=== PATIENT | male | born 1935 | race Caucasian/White ===

== ENCOUNTER 2020-07-21 10:20 | Emergency (ER) | payer MEDICAID, OTHER ==
[~2020-07-21] VITALS: Ht 170.2 cm; Wt 73.0 kg
[~2020-07-21 10:20] MED LIST: LEVAQUIN PO; METR250T PO
[2020-07-21 11:17] LABS: BASOPHILS % 1.3 % (0.0-2.0); HEMATOCRIT. 38.3 % (42.0-52.0); HEMOGLOBIN. 13.5 g/dL (14.0-18.0); LYMPHOCYTES % 36.7 % (20.0-50.0); MEAN CORPUSCULAR HEMOGLOBIN 31.2 pg (28.0-32.0); MEAN CORPUSCULAR VOLUME 88.5 fL (80.0-94.0); MEAN PLATELET VOLUME 7.4 fl (7.4-10.4); MONOCYTES % 8.1 % (2.0-8.0); NEUTROPHILS % 52.9 % (40.0-76.0); PLATELET 178 x1000/uL (130-400); RED BLOOD CELL COUNT 4.32 mill/uL (4.7-6.1); RED CELL DISTRIBUTION WIDTH 12.7 % (11.6-14.6)
[2020-07-21 11:22] LABS: CHLORIDE 96 mEq/L (98-107)
[2020-07-21 11:39] LABS: CLARITY URINE CLEAR (CLEAR); COLOR URINE YELLOW (YELLOW); KETONES URINE NEGATIVE (NEGATIVE); LEUKOCYTE ESTERASE URINE NEGATIVE (NEGATIVE); NITRITE URINE NEGATIVE (NEGATIVE); OCCULT BLOOD URINE 1+ (NEGATIVE); PH URINE 6.5 (4.5-8.0); PROTEIN URINE 4+ (NEGATIVE); SPECIFIC GRAVITY URINE 1.013 (1.005-1.030); UROBILINOGEN URINE 0.2 E.U./dL (0.2-1.0)
[2020-07-21] MEDS ORDERED: SODIUM CHLORIDE 0.9% 1,000 ML IV ONE (12:00)
[2020-07-21 13:05] LABS: PROTHROMBIN TIME 10.5 sec (9.6-11.0)
[2020-07-21] MEDS ORDERED: IOHEXOL-300 100 ML BOTTLE ONE (15:03)
[2020-07-21] MEDS ORDERED: LABETALOL 5MG/ML SYR 20 MG/4 ML SYRINGE IV ONE (16:00)
[2020-07-21 16:27] VITALS: BP 168/78
== END 2020-07-21 17:03 | disposition short-term general hospital (02) ==
LOC: ER 10:20
DX: R07.89 Other chest pain (principal); E11.9 Type 2 diabetes mellitus without complications; I10 Essential (primary) hypertension; E78.00 Pure hypercholesterolemia, unspecified; R10.9 Unspecified abdominal pain; Z88.0 Allergy status to penicillin; Z90.49 Acquired absence of other specified parts of digestive tract
CPT/HCPCS: 36415; 71045; 74177; 80053; 81003; 83605; 83690; 84484; 85025; 85610; 93005; 96360; 96361; 99285; J3490; J7030; Q9967

== ENCOUNTER 2021-06-21 13:39 | Inpatient (IN) | payer OTHER ==
[~2021-06-21] VITALS: Ht 152.4 cm; Wt 73.5 kg
[2021-06-21] MEDS ORDERED: MECLIZINE 25MG TABLET PO ONE (15:15)
[2021-06-21 15:16] LABS: BASOPHILS % 1.1 % (0.0-2.0); EOSINOPHILS % 1.3 % (0.0-5.0); HEMOGLOBIN. 14.7 g/dL (14.0-18.0); LYMPHOCYTES % 52.4 % (20.0-50.0); MEAN CORPUSCULAR HEMOGLOBIN 30.7 pg (28.0-32.0); MEAN PLATELET VOLUME 6.9 fl (7.4-10.4); NEUTROPHILS % 39.2 % (40.0-76.0); PLATELET 181 x1000/uL (130-400); RED BLOOD CELL COUNT 4.78 mill/uL (4.7-6.1); RED CELL DISTRIBUTION WIDTH 14.1 % (11.6-14.6)
[2021-06-21 15:18] LABS: CHLORIDE 107 mEq/L (98-107)
[2021-06-21] MEDS ORDERED: MECL-159 MT ×2 (15:24)
[2021-06-21 16:06] LABS: CLARITY URINE CLEAR (CLEAR); COLOR URINE YELLOW (YELLOW); KETONES URINE NEGATIVE (NEGATIVE); LEUKOCYTE ESTERASE URINE NEGATIVE (NEGATIVE); NITRITE URINE NEGATIVE (NEGATIVE); OCCULT BLOOD URINE NEGATIVE (NEGATIVE); PROTEIN URINE TRACE (NEGATIVE); SPECIFIC GRAVITY URINE 1.006 (1.005-1.030); UROBILINOGEN URINE 0.2 E.U./dL (0.2-1.0)
[2021-06-21] MEDS ORDERED: SODIUM CHLORIDE 0.9% 250 ML IV ONE (16:15)
[2021-06-21] MEDS ORDERED: LEVETIRACETAM 1000MG PREMIX 100 ML IV ONE (17:45)
[2021-06-21 23:00] VITALS: BP 146/54
[2021-06-22] VITALS (11 sets, daily range): BP systolic 98–140; BP diastolic 41–65
[2021-06-22] MEDS ORDERED: MECLIZINE 25MG TABLET PO PRN (01:30)
[2021-06-22] MEDS ORDERED: FAMO40TA7 MT (17:33)
[2021-06-22] MEDS ORDERED: GLIM2TAB30 MT (17:33)
[2021-06-22] MEDS ORDERED: NIFE-32 MT (17:33)
[2021-06-22] MEDS ORDERED: METO-539 PO (17:33)
[2021-06-23] VITALS (8 sets, daily range): BP systolic 106–156; BP diastolic 50–112
== END 2021-06-23 15:15 | disposition home or self-care (01) | DRG 44 ==
LOC: ER 13:39 → EDBEDREQTM 20:04 → EDBEDREQSVC 20:04 → EDBEDREQ 20:04 → ENRESERV 21:23 → ER 06-22 00:03 → 5EST 06-22 00:19
PROVIDERS: ADMIT Internal Medicine; ATTEND Internal Medicine
DX: I61.9 Nontraumatic intracerebral hemorrhage, unspecified (principal); E44.1 Mild protein-calorie malnutrition; E11.9 Type 2 diabetes mellitus without complications; E66.9 Obesity, unspecified; E78.00 Pure hypercholesterolemia, unspecified; Z20.822 Contact with and (suspected) exposure to COVID-19; E78.5 Hyperlipidemia, unspecified; I10 Essential (primary) hypertension; Z82.49 Family history of ischemic heart disease and other diseases of the circulatory system; Z88.0 Allergy status to penicillin; Z79.899 Other long term (current) drug therapy; Z90.49 Acquired absence of other specified parts of digestive tract; Z68.31 Body mass index [BMI] 31.0-31.9, adult
CPT/HCPCS: 36415; 70551; 71045; 80053; 81003; 84484; 85025; 87426; 93005; 97163; 99291; J1953; J7050; J8597

== ENCOUNTER 2022-02-25 10:14 | Emergency (ER) | payer OTHER ==
[~2022-02-25] VITALS: Ht 167.6 cm; Wt 77.0 kg
[~2022-02-25 10:14] MED LIST changes: +FAMO40TA7 MT; +GLIM2TAB30 MT; -LEVAQUIN PO; +METO-539 PO; -METR250T PO; +NIFE-32 MT
[2022-02-25 11:14] LABS: HEMATOCRIT. 41.3 % (42.0-52.0); HEMOGLOBIN. 13.9 g/dL (14.0-18.0); MEAN CORPUSCULAR HEMOGLOBIN 29.6 pg (28.0-32.0); MEAN CORPUSCULAR VOLUME 87.7 fL (80.0-94.0); PLATELET 176 x1000/uL (130-400); RED BLOOD CELL COUNT 4.71 mill/uL (4.7-6.1); RED CELL DISTRIBUTION WIDTH 13.7 % (11.6-14.6)
[2022-02-25 11:24] LABS: CHLORIDE 106 mEq/L (98-107)
[2022-02-25 12:01] LABS: PLATELET ESTIMATE NORMAL
[2022-02-25] MEDS ORDERED: ACETAMINOPHEN 325MG TABLET PO NR (13:00)
[2022-02-25] MEDS ORDERED: VISCOUS LIDOCAINE 2% 15 ML UDC MM ONE (15:15)
[2022-02-25] MEDS ORDERED: MAGNESIUM/ALUMINUM HYDROXIDE/SIMETHICONE 30ML UDC PO ONE (15:15)
[2022-02-25 19:02] VITALS: BP 208/72
[2022-02-25] MEDS ORDERED: AMLODIPINE 10MG TABLET PO STA (19:04)
== END 2022-02-25 21:48 | disposition home or self-care (01) ==
LOC: ER 10:26
DX: I10 Essential (primary) hypertension (principal); R51.9 Headache, unspecified; E78.00 Pure hypercholesterolemia, unspecified; E11.9 Type 2 diabetes mellitus without complications; Z90.49 Acquired absence of other specified parts of digestive tract; Z88.0 Allergy status to penicillin
CPT/HCPCS: 36415; 71045; 80053; 83880; 84484; 85025; 93005; 99285

== ENCOUNTER 2022-08-11 15:21 | Emergency (ER) | payer OTHER ==
[~2022-08-11] VITALS: Ht 170.2 cm; Wt 78.0 kg
[2022-08-11 15:34] VITALS: BP 190/68
[2022-08-11 22:20] LABS: HEMATOCRIT. 39.3 % (42.0-52.0); HEMOGLOBIN. 13.4 g/dL (14.0-18.0); MEAN CORPUSCULAR VOLUME 88.3 fL (80.0-94.0); MEAN PLATELET VOLUME 6.7 fl (7.4-10.4); PLATELET 178 x1000/uL (130-400); RED BLOOD CELL COUNT 4.46 mill/uL (4.7-6.1); RED CELL DISTRIBUTION WIDTH 13.7 % (11.6-14.6)
[2022-08-11 22:36] LABS: PLATELET ESTIMATE NORMAL
[2022-08-11 22:43] LABS: CHLORIDE 103 mEq/L (98-107)
== END 2022-08-11 23:58 | disposition left against medical advice (07) ==
LOC: ER 15:21
DX: Z53.21 Procedure and treatment not carried out due to patient leaving prior to being seen by health care provider (principal)
CPT/HCPCS: 36415; 80053; 83880; 84484; 85025

== ENCOUNTER 2022-09-16 20:41 | Inpatient (IN) | payer OTHER ==
[~2022-09-16] VITALS: Ht 177.8 cm; Wt 64.0 kg
[2022-09-16] MEDS ORDERED: LABETALOL HCL VIAL 20 MG/4 ML VIAL IV ONE ×2 (21:30→22:00)
[2022-09-16 21:34] LABS: INR 1.1; PROTHROMBIN TIME 11.7 sec (9.6-11.0)
[2022-09-16 21:37] LABS: CHLORIDE 102 mEq/L (98-107)
[2022-09-16] MEDS ORDERED: LABETALOL 5MG/ML SYR 20 MG/4 ML SYRINGE IV NR ×2 (21:41→22:05)
[2022-09-16 21:46] LABS: HEMATOCRIT. 42.4 % (42.0-52.0); HEMOGLOBIN. 14.1 g/dL (14.0-18.0); MEAN CORPUSCULAR HEMOGLOBIN 29.7 pg (28.0-32.0); MEAN CORPUSCULAR VOLUME 89.2 fL (80.0-94.0); MEAN PLATELET VOLUME 7.6 fl (7.4-10.4); PLATELET 481 x1000/uL (130-400); RED BLOOD CELL COUNT 4.76 mill/uL (4.7-6.1); RED CELL DISTRIBUTION WIDTH 14.1 % (11.6-14.6)
[2022-09-16] MEDS ORDERED: VANCOMYCIN 1G PREMIX 200 ML IV SCH (22:00)
[2022-09-16] MEDS ORDERED: PIPERACILLIN/TAZOBACTAM 3.375GM/50ML PREMIX IV NR (22:00)
[2022-09-16] MEDS ORDERED: PIPERACILLIN/TAZ 3.375G PREMIX 50 ML IV NR (22:11)
[2022-09-16 22:22] LABS: CLARITY URINE CLEAR (CLEAR); COLOR URINE YELLOW (YELLOW); KETONES URINE NEGATIVE (NEGATIVE); LEUKOCYTE ESTERASE URINE NEGATIVE (NEGATIVE); NITRITE URINE NEGATIVE (NEGATIVE); OCCULT BLOOD URINE 2+ (NEGATIVE); PH URINE 5.5 (4.5-8.0); PROTEIN URINE 3+ (NEGATIVE); SPECIFIC GRAVITY URINE 1.037 (1.005-1.030)
[2022-09-16 22:33] LABS: PLATELET ESTIMATE INCREASED
[2022-09-17] MEDS: CLONIDINE 0.1MG TABLET PO PRN ×2 (02:25→18:34)
[2022-09-17] MEDS ORDERED: ONDANSETRON HCL 4MG/2ML INJ IV PRN (12:00)
[2022-09-17] MEDS ORDERED: DEXTROSE 50% WATER 50ML SYRINGE IV PRN (12:00)
[2022-09-17] MEDS ORDERED: ACETAMINOPHEN 325MG TABLET PO PRN (12:00)
[2022-09-17] MEDS ORDERED: IPRATROPIUM BROMIDE (0.02%) 0.5MG/2.5ML NEB HHN SCH (12:00)
[2022-09-17 12:28] LABS: BG BASE EXCESS 2.9 mmol/L (-2.0-2.0); BG CARBOXYHEMOGLOBIN 0.9 % (0.5-1.5); BG DEOXYHEMOGLOBIN 7.6 % (0.0-5.0); BG METHEMOGLOBIN 0.2 % (0.0-1.5); BG OXYGEN SATURATION 92.3 % (92.0-98.5); BG OXYHEMOGLOBIN 91.3 % (94.0-97.0); BG PCO2 39.5 mmHg (35.0-45.0); BG PH 7.452 (7.350-7.450); BG PO2 63.9 mmHg (75.0-100.0); BG SAMPLE SITE RIGHT BRACHIAL; BG TOTAL HEMOGLOBIN 14.3 g/dL (12.0-18.0); BG VENT MODE NASAL CANNULA
[2022-09-17] MEDS: BLOOD SUGAR DIAGNOSTIC STRIP TEST SCH ×3 (13:32→20:07)
[2022-09-17] MEDS: INSULIN LISPRO 100 UNITS/ML SUBCUT SCH ×3 (13:33→20:07)
[2022-09-17] MEDS ORDERED: PIPERACILLIN/TAZ 3.375G PREMIX 50 ML IV SCH (14:00)
[2022-09-17] MEDS ORDERED: IPRATROPIUM/ALBUTEROL 0.5-3(2.5)MG/3ML NEB HHN PRN (14:00)
[2022-09-17] MEDS: GUAIFENESIN 600MG ER TABLET PO SCH (14:48)
[2022-09-17] MEDS: IPRATROPIUM/ALBUTEROL 0.5-3(2.5)MG/3ML NEB HHN SCH ×2 (16:32→21:29)
[2022-09-17] MEDS: GUAIFENESIN-DM 200MG-20MG/10ML UDC PO PRN (18:33)
[2022-09-17 20:00] VITALS: BP 144/62
[2022-09-17] MEDS: PIPERACILLIN/TAZOBACTAM 3.375G in DEXT 5% WATER 50ML IV SCH (21:54)
[2022-09-18] VITALS (8 sets, daily range): BP systolic 146–175; BP diastolic 64–85
[2022-09-18] MEDS: IPRATROPIUM/ALBUTEROL 0.5-3(2.5)MG/3ML NEB HHN SCH ×4 (01:40→11:08)
[2022-09-18] MEDS: PIPERACILLIN/TAZOBACTAM 3.375G in DEXT 5% WATER 50ML IV SCH ×3 (06:02→20:52)
[2022-09-18] MEDS: INSULIN LISPRO 100 UNITS/ML SUBCUT SCH ×4 (06:03→20:51)
[2022-09-18] MEDS: BLOOD SUGAR DIAGNOSTIC STRIP TEST SCH ×4 (06:33→20:51)
[2022-09-18 08:02] LABS: BASOPHILS % 0.1 % (0.0-2.0); EOSINOPHILS % 0.2 % (0.0-5.0); HEMATOCRIT. 33.7 % (42.0-52.0); HEMOGLOBIN. 11.2 g/dL (14.0-18.0); LYMPHOCYTES % 51.2 % (20.0-50.0); MEAN CORPUSCULAR HEMOGLOBIN 29.6 pg (28.0-32.0); MEAN CORPUSCULAR VOLUME 89.3 fL (80.0-94.0); MEAN PLATELET VOLUME 7.4 fl (7.4-10.4); MONOCYTES % 4.8 % (2.0-8.0); NEUTROPHILS % 43.7 % (40.0-76.0); PLATELET 352 x1000/uL (130-400); RED BLOOD CELL COUNT 3.77 mill/uL (4.7-6.1); RED CELL DISTRIBUTION WIDTH 14.3 % (11.6-14.6)
[2022-09-18 08:06] LABS: CHLORIDE 108 mEq/L (98-107)
[2022-09-18] MEDS: GUAIFENESIN 600MG ER TABLET PO SCH ×2 (08:40→16:35)
[2022-09-18] MEDS: CLONIDINE 0.1MG TABLET PO PRN (12:39)
[2022-09-18] MEDS: DEXAMETHASONE 4MG/ML 1ML VIAL IV SCH (14:39)
[2022-09-18] MEDS: ALBUTEROL 6.7GM HFA INHALER ORI SCH ×2 (14:59→21:00)
[2022-09-18] MEDS: AMLODIPINE 5MG TABLET PO SCH (17:00)
[2022-09-19] VITALS: BP 133/57
[2022-09-19] MEDS: ALBUTEROL 6.7GM HFA INHALER ORI SCH ×4 (03:19→21:25)
[2022-09-19 04:00] VITALS: BP 141/63
[2022-09-19 06:08] LABS: HEMATOCRIT. 32.9 % (42.0-52.0); HEMOGLOBIN. 11.1 g/dL (14.0-18.0); MEAN CORPUSCULAR HEMOGLOBIN 29.9 pg (28.0-32.0); MEAN CORPUSCULAR VOLUME 88.4 fL (80.0-94.0); MEAN PLATELET VOLUME 7.8 fl (7.4-10.4); MONOCYTES % 3.5 % (2.0-8.0); NEUTROPHILS % 51.5 % (40.0-76.0); PLATELET 329 x1000/uL (130-400); RED BLOOD CELL COUNT 3.72 mill/uL (4.7-6.1)
[2022-09-19] MEDS: BLOOD SUGAR DIAGNOSTIC STRIP TEST SCH ×4 (06:08→21:09)
[2022-09-19] MEDS: INSULIN LISPRO 100 UNITS/ML SUBCUT SCH ×4 (06:08→21:24)
[2022-09-19] MEDS: PIPERACILLIN/TAZOBACTAM 3.375G in DEXT 5% WATER 50ML IV SCH ×3 (06:09→21:25)
[2022-09-19 07:27] LABS: CHLORIDE 103 mEq/L (98-107)
[2022-09-19 08:00] VITALS: BP 140/98
[2022-09-19] MEDS: AMLODIPINE 5MG TABLET PO SCH (09:09)
[2022-09-19] MEDS: GUAIFENESIN 600MG ER TABLET PO SCH ×2 (09:09→16:41)
[2022-09-19] MEDS: DEXAMETHASONE 4MG/ML 1ML VIAL IV SCH (09:30)
[2022-09-19] MEDS: GUAIFENESIN-DM 200MG-20MG/10ML UDC PO PRN ×2 (11:38→16:41)
[2022-09-19 12:10] VITALS: BP 116/74
[2022-09-19] MEDS ORDERED: FUROSEMIDE 20MG/2ML VIAL IVP NR (14:00)
[2022-09-19 16:00] VITALS: BP 148/78
[2022-09-19 20:00] VITALS: BP 152/81
[2022-09-19] MEDS: INSULIN GLARGINE 100 UNITS/ML SUBCUT SCH (21:23)
[2022-09-20] VITALS: BP 157/61
[2022-09-20] MEDS: ALBUTEROL 6.7GM HFA INHALER ORI SCH ×4 (03:39→21:42)
[2022-09-20] MEDS: GUAIFENESIN-DM 200MG-20MG/10ML UDC PO PRN ×2 (03:44→22:10)
[2022-09-20 04:00] VITALS: BP 148/68
[2022-09-20] MEDS: BLOOD SUGAR DIAGNOSTIC STRIP TEST SCH ×4 (06:22→20:48)
[2022-09-20] MEDS: INSULIN LISPRO 100 UNITS/ML SUBCUT SCH ×4 (06:31→20:48)
[2022-09-20] MEDS: PIPERACILLIN/TAZOBACTAM 3.375G in DEXT 5% WATER 50ML IV SCH ×3 (06:32→22:10)
[2022-09-20 08:00] VITALS: BP 139/61
[2022-09-20] MEDS: DEXAMETHASONE 4MG/ML 1ML VIAL IV SCH (10:09)
[2022-09-20] MEDS: GUAIFENESIN 600MG ER TABLET PO SCH ×2 (10:10→18:49)
[2022-09-20] MEDS: AMLODIPINE 5MG TABLET PO SCH (10:10)
[2022-09-20] MEDS: INSULIN GLARGINE 100 UNITS/ML SUBCUT SCH ×2 (10:24→22:12)
[2022-09-20 12:00] VITALS: BP 137/71
[2022-09-20 16:00] VITALS: BP 147/61
[2022-09-20 20:00] VITALS: BP 133/88
[2022-09-21] VITALS: BP 163/74
[2022-09-21] MEDS: CLONIDINE 0.1MG TABLET PO PRN (02:48)
[2022-09-21] MEDS: ALBUTEROL 6.7GM HFA INHALER ORI SCH ×4 (02:48→20:24)
[2022-09-21 04:00] VITALS: BP 155/67
[2022-09-21] MEDS: BLOOD SUGAR DIAGNOSTIC STRIP TEST SCH ×4 (05:36→20:24)
[2022-09-21] MEDS: PIPERACILLIN/TAZOBACTAM 3.375G in DEXT 5% WATER 50ML IV SCH ×3 (05:36→21:38)
[2022-09-21] MEDS: GUAIFENESIN-DM 200MG-20MG/10ML UDC PO PRN ×4 (06:32→20:24)
[2022-09-21] MEDS: INSULIN LISPRO 100 UNITS/ML SUBCUT SCH ×4 (07:10→21:30)
[2022-09-21 07:43] LABS: HEMATOCRIT. 36.1 % (42.0-52.0); MEAN CORPUSCULAR HEMOGLOBIN 29.6 pg (28.0-32.0); MEAN PLATELET VOLUME 7.5 fl (7.4-10.4); PLATELET 394 x1000/uL (130-400); RED BLOOD CELL COUNT 4.06 mill/uL (4.7-6.1); RED CELL DISTRIBUTION WIDTH 13.6 % (11.6-14.6)
[2022-09-21 08:00] VITALS: BP 144/53
[2022-09-21 08:06] LABS: CHLORIDE 105 mEq/L (98-107)
[2022-09-21] MEDS: GUAIFENESIN 600MG ER TABLET PO SCH ×2 (09:49→16:21)
[2022-09-21] MEDS: DEXAMETHASONE 4MG/ML 1ML VIAL IV SCH (09:50)
[2022-09-21] MEDS: AMLODIPINE 5MG TABLET PO SCH (09:50)
[2022-09-21] MEDS: INSULIN GLARGINE 100 UNITS/ML SUBCUT SCH ×2 (11:39→21:30)
[2022-09-21 12:00] VITALS: BP 127/49
[2022-09-21 16:00] VITALS: BP 124/54
[2022-09-21 18:17] LABS: PLATELET ESTIMATE NORMAL
[2022-09-21 20:00] VITALS: BP 137/59
[2022-09-22] VITALS: BP 144/56
[2022-09-22 04:00] VITALS: BP 152/86
[2022-09-22] MEDS: ALBUTEROL 6.7GM HFA INHALER ORI SCH ×4 (04:59→21:28)
[2022-09-22] MEDS: GUAIFENESIN-DM 200MG-20MG/10ML UDC PO PRN ×2 (04:59→23:44)
[2022-09-22] MEDS: PIPERACILLIN/TAZOBACTAM 3.375G in DEXT 5% WATER 50ML IV SCH ×3 (05:03→21:20)
[2022-09-22] MEDS: BLOOD SUGAR DIAGNOSTIC STRIP TEST SCH ×4 (05:52→21:27)
[2022-09-22] MEDS: INSULIN LISPRO 100 UNITS/ML SUBCUT SCH ×4 (07:10→21:20)
[2022-09-22 08:00] VITALS: BP 142/56
[2022-09-22] MEDS: DEXAMETHASONE 4MG/ML 1ML VIAL IV SCH (09:32)
[2022-09-22] MEDS: GUAIFENESIN 600MG ER TABLET PO SCH ×2 (09:32→17:10)
[2022-09-22] MEDS: AMLODIPINE 5MG TABLET PO SCH (09:33)
[2022-09-22] MEDS: INSULIN GLARGINE 100 UNITS/ML SUBCUT SCH ×2 (09:41→21:21)
[2022-09-22 12:00] VITALS: BP 144/62
[2022-09-22 16:00] VITALS: BP 143/54
[2022-09-22 16:35] LABS: BG BASE EXCESS -1.1 mmol/L (-2.0-2.0); BG DEOXYHEMOGLOBIN 3.8 % (0.0-5.0); BG FRACTION INSPIRED OXYGEN 38; BG HCO3 ACT 22.5 mmol/L (22.0-26.0); BG METHEMOGLOBIN 0.1 % (0.0-1.5); BG OXYGEN SATURATION 96.2 % (92.0-98.5); BG OXYHEMOGLOBIN 96.1 % (94.0-97.0); BG PCO2 34.4 mmHg (35.0-45.0); BG PH 7.434 (7.350-7.450); BG PO2 83.5 mmHg (75.0-100.0); BG SAMPLE SITE RIGHT RADIAL; BG TOTAL HEMOGLOBIN 13.1 g/dL (12.0-18.0); BG VENT MODE NASAL CANNULA
[2022-09-22 20:00] VITALS: BP 139/88
[2022-09-23] VITALS: BP 143/65
[2022-09-23 04:00] VITALS: BP 153/51
[2022-09-23] MEDS: ALBUTEROL 6.7GM HFA INHALER ORI SCH ×4 (04:45→21:08)
[2022-09-23] MEDS: INSULIN LISPRO 100 UNITS/ML SUBCUT SCH ×4 (05:40→21:03)
[2022-09-23] MEDS: BLOOD SUGAR DIAGNOSTIC STRIP TEST SCH ×4 (05:40→20:54)
[2022-09-23 06:08] LABS: CHLORIDE 103 mEq/L (98-107)
[2022-09-23 06:16] LABS: HEMATOCRIT. 37.1 % (42.0-52.0); HEMOGLOBIN. 12.5 g/dL (14.0-18.0); MEAN CORPUSCULAR HEMOGLOBIN 29.9 pg (28.0-32.0); MEAN PLATELET VOLUME 7.6 fl (7.4-10.4); PLATELET 410 x1000/uL (130-400); RED BLOOD CELL COUNT 4.17 mill/uL (4.7-6.1); RED CELL DISTRIBUTION WIDTH 13.6 % (11.6-14.6)
[2022-09-23 08:00] VITALS: BP 153/61
[2022-09-23] MEDS: GUAIFENESIN 600MG ER TABLET PO SCH ×2 (09:13→17:09)
[2022-09-23] MEDS: DEXAMETHASONE 4MG/ML 1ML VIAL IV SCH (09:13)
[2022-09-23] MEDS: GUAIFENESIN-DM 200MG-20MG/10ML UDC PO PRN ×2 (09:14→14:23)
[2022-09-23] MEDS: AMLODIPINE 5MG TABLET PO SCH (09:14)
[2022-09-23] MEDS: INSULIN GLARGINE 100 UNITS/ML SUBCUT SCH ×2 (10:00→21:03)
[2022-09-23 11:53] LABS: BG BASE EXCESS 3.3 mmol/L (-2.0-2.0); BG CARBOXYHEMOGLOBIN 0.5 % (0.5-1.5); BG DEOXYHEMOGLOBIN 12.5 % (0.0-5.0); BG FRACTION INSPIRED OXYGEN 21; BG HCO3 ACT 26.4 mmol/L (22.0-26.0); BG METHEMOGLOBIN 0.2 % (0.0-1.5); BG OXYGEN SATURATION 87.4 % (92.0-98.5); BG OXYHEMOGLOBIN 86.8 % (94.0-97.0); BG PCO2 35.5 mmHg (35.0-45.0); BG PO2 53.3 mmHg (75.0-100.0); BG SAMPLE SITE RIGHT BRACHIAL; BG TOTAL HEMOGLOBIN 14.1 g/dL (12.0-18.0); BG VENT MODE ROOM AIR
[2022-09-23 12:00] VITALS: BP 143/53
[2022-09-23 16:00] VITALS: BP_SYST 131
[2022-09-23 20:00] VITALS: BP 141/54
[2022-09-24] VITALS: BP 136/55
[2022-09-24] MEDS: GUAIFENESIN-DM 200MG-20MG/10ML UDC PO PRN ×3 (00:14→15:15)
[2022-09-24] MEDS: ALBUTEROL 6.7GM HFA INHALER ORI SCH ×4 (03:04→21:30)
[2022-09-24 04:00] VITALS: BP 137/61
[2022-09-24] MEDS: BLOOD SUGAR DIAGNOSTIC STRIP TEST SCH ×4 (05:58→21:31)
[2022-09-24] MEDS: INSULIN LISPRO 100 UNITS/ML SUBCUT SCH ×4 (05:58→21:31)
[2022-09-24 08:00] VITALS: BP 137/60
[2022-09-24] MEDS: DEXAMETHASONE 4MG/ML 1ML VIAL IV SCH (09:43)
[2022-09-24] MEDS: AMLODIPINE 5MG TABLET PO SCH (09:43)
[2022-09-24] MEDS: GUAIFENESIN 600MG ER TABLET PO SCH ×2 (09:43→17:17)
[2022-09-24] MEDS: INSULIN GLARGINE 100 UNITS/ML SUBCUT SCH ×2 (10:00→12:57)
[2022-09-24 12:00] VITALS: BP 137/58
[2022-09-24 14:39] LABS: PLATELET ESTIMATE SLIGHTLY INCREASED
[2022-09-24 16:00] VITALS: BP 125/41
[2022-09-24 18:23] LABS: BASOPHILS % 0.1 % (0.0-2.0); HEMOGLOBIN. 13.6 g/dL (14.0-18.0); LYMPHOCYTES % 48.5 % (20.0-50.0); MEAN CORPUSCULAR VOLUME 90.7 fL (80.0-94.0); MEAN PLATELET VOLUME 7.3 fl (7.4-10.4); MONOCYTES % 3.8 % (2.0-8.0); NEUTROPHILS % 47.6 % (40.0-76.0); PLATELET 361 x1000/uL (130-400); RED BLOOD CELL COUNT 4.53 mill/uL (4.7-6.1); RED CELL DISTRIBUTION WIDTH 14.3 % (11.6-14.6)
[2022-09-24 18:31] LABS: CHLORIDE 99 mEq/L (98-107)
[2022-09-24 20:00] VITALS: BP 134/51
[2022-09-24] MEDS: FAMOTIDINE 20MG TABLET PO SCH (21:30)
[2022-09-25] VITALS: BP 164/62
[2022-09-25] MEDS: CLONIDINE 0.1MG TABLET PO PRN (01:11)
[2022-09-25] MEDS: ALBUTEROL 6.7GM HFA INHALER ORI SCH ×4 (03:27→21:07)
[2022-09-25 04:00] VITALS: BP 93/52
[2022-09-25] MEDS: BLOOD SUGAR DIAGNOSTIC STRIP TEST SCH ×4 (06:16→20:55)
[2022-09-25] MEDS: INSULIN LISPRO 100 UNITS/ML SUBCUT SCH ×4 (06:35→21:08)
[2022-09-25 08:00] VITALS: BP 166/62
[2022-09-25] MEDS: GUAIFENESIN 600MG ER TABLET PO SCH ×2 (09:41→18:09)
[2022-09-25] MEDS: AMLODIPINE 5MG TABLET PO SCH (09:41)
[2022-09-25] MEDS: FAMOTIDINE 20MG TABLET PO SCH ×2 (09:42→21:06)
[2022-09-25] MEDS: DEXAMETHASONE 10 MG/ML VIAL IV SCH (09:42)
[2022-09-25] MEDS: INSULIN GLARGINE 100 UNITS/ML SUBCUT SCH ×2 (09:43→21:08)
[2022-09-25 12:00] VITALS: BP 117/54
[2022-09-25 16:00] VITALS: BP 140/60
[2022-09-25 20:00] VITALS: BP 133/64
[2022-09-26] VITALS: BP 136/60
[2022-09-26] MEDS: ALBUTEROL 6.7GM HFA INHALER ORI SCH (03:09)
[2022-09-26 04:00] VITALS: BP 161/74
[2022-09-26] MEDS: INSULIN LISPRO 100 UNITS/ML SUBCUT SCH ×4 (06:12→23:00)
[2022-09-26] MEDS: BLOOD SUGAR DIAGNOSTIC STRIP TEST SCH ×4 (06:17→21:00)
[2022-09-26 08:00] VITALS: BP 164/67
[2022-09-26] MEDS: DEXAMETHASONE 10 MG/ML VIAL IV SCH (09:00)
[2022-09-26] MEDS: GUAIFENESIN 600MG ER TABLET PO SCH ×2 (09:18→17:30)
[2022-09-26] MEDS: FAMOTIDINE 20MG TABLET PO SCH ×2 (09:19→23:00)
[2022-09-26] MEDS: AMLODIPINE 5MG TABLET PO SCH (09:19)
[2022-09-26] MEDS: INSULIN GLARGINE 100 UNITS/ML SUBCUT SCH ×2 (09:30→22:59)
[2022-09-26 11:59] VITALS: BP 121/56
[2022-09-26 15:46] VITALS: BP 105/47
[2022-09-26 20:00] VITALS: BP 148/59
[2022-09-27] VITALS: BP 149/61
[2022-09-27] MEDS: ALBUTEROL 6.7GM HFA INHALER ORI SCH ×3 (03:35→15:43)
[2022-09-27 04:00] VITALS: BP 143/55
[2022-09-27] MEDS: INSULIN LISPRO 100 UNITS/ML SUBCUT SCH ×4 (05:56→22:05)
[2022-09-27] MEDS: BLOOD SUGAR DIAGNOSTIC STRIP TEST SCH ×4 (05:56→21:57)
[2022-09-27 08:00] VITALS: BP 134/65
[2022-09-27] MEDS: GUAIFENESIN 600MG ER TABLET PO SCH ×2 (08:41→17:32)
[2022-09-27] MEDS: FAMOTIDINE 20MG TABLET PO SCH ×2 (08:42→22:05)
[2022-09-27] MEDS: AMLODIPINE 5MG TABLET PO SCH (08:42)
[2022-09-27] MEDS: DEXAMETHASONE 10 MG/ML VIAL IV SCH (08:43)
[2022-09-27] MEDS: INSULIN GLARGINE 100 UNITS/ML SUBCUT SCH ×2 (09:57→22:05)
[2022-09-27 12:00] VITALS: BP 125/64
[2022-09-27 16:00] VITALS: BP 150/58
[2022-09-27 20:00] VITALS: BP 127/51
[2022-09-28] VITALS: BP 161/56
[2022-09-28] MEDS: CLONIDINE 0.1MG TABLET PO PRN (00:30)
[2022-09-28 04:00] VITALS: BP 125/46
[2022-09-28] MEDS: INSULIN LISPRO 100 UNITS/ML SUBCUT SCH ×4 (06:19→21:12)
[2022-09-28] MEDS: BLOOD SUGAR DIAGNOSTIC STRIP TEST SCH ×4 (06:20→20:58)
[2022-09-28 08:00] VITALS: BP 136/54
[2022-09-28] MEDS: FAMOTIDINE 20MG TABLET PO SCH ×2 (09:03→21:12)
[2022-09-28] MEDS: GUAIFENESIN 600MG ER TABLET PO SCH ×2 (09:03→17:44)
[2022-09-28] MEDS: AMLODIPINE 5MG TABLET PO SCH (09:04)
[2022-09-28] MEDS: INSULIN GLARGINE 100 UNITS/ML SUBCUT SCH ×2 (10:14→21:06)
[2022-09-28 12:00] VITALS: BP 126/55
[2022-09-28 16:00] VITALS: BP 100/52
[2022-09-28 17:29] LABS: BG BASE EXCESS 3.8 mmol/L (-2.0-2.0); BG CARBOXYHEMOGLOBIN 0.1 % (0.5-1.5); BG FRACTION INSPIRED OXYGEN 21; BG HCO3 ACT 28.7 mmol/L (22.0-26.0); BG METHEMOGLOBIN 0.3 % (0.0-1.5); BG OXYHEMOGLOBIN 90.6 % (94.0-97.0); BG PCO2 44.7 mmHg (35.0-45.0); BG PH 7.426 (7.350-7.450); BG PO2 57.5 mmHg (75.0-100.0); BG SAMPLE SITE RIGHT RADIAL; BG TOTAL HEMOGLOBIN 13.7 g/dL (12.0-18.0); BG VENT MODE ROOM AIR
[2022-09-28 20:00] VITALS: BP 128/49
[2022-09-28] MEDS: ALBUTEROL 6.7GM HFA INHALER ORI SCH (21:18)
[2022-09-29] VITALS (7 sets, daily range): BP systolic 122–161; BP diastolic 52–68
[2022-09-29] MEDS: ALBUTEROL 6.7GM HFA INHALER ORI SCH ×3 (02:28→21:51)
[2022-09-29] MEDS: BLOOD SUGAR DIAGNOSTIC STRIP TEST SCH ×4 (05:39→21:51)
[2022-09-29] MEDS: INSULIN LISPRO 100 UNITS/ML SUBCUT SCH ×4 (05:39→21:51)
[2022-09-29] MEDS: FAMOTIDINE 20MG TABLET PO SCH ×2 (12:01→21:47)
[2022-09-29] MEDS: AMLODIPINE 5MG TABLET PO SCH (12:01)
[2022-09-29] MEDS: GUAIFENESIN 600MG ER TABLET PO SCH ×2 (12:02→18:23)
[2022-09-29] MEDS: INSULIN GLARGINE 100 UNITS/ML SUBCUT SCH ×2 (12:04→21:50)
[2022-09-29] MEDS ORDERED: NITROGLYCERIN OINT 1GM/INCH UDPKT TD NR (14:00)
== END 2022-09-29 22:15 | disposition home or self-care (01) | DRG 720 ==
LOC: ER 21:11 → 8WST 22:19 → EDBEDREQ 22:34 → EDBEDREQTM 22:34 → 7EST 09-17 23:57
PROVIDERS: ADMIT Internal Medicine; ATTEND Internal Medicine
DX: A41.89 Other specified sepsis (principal); J96.01 Acute respiratory failure with hypoxia; J12.82 Pneumonia due to coronavirus disease 2019; E43 Unspecified severe protein-calorie malnutrition; U07.1 COVID-19; E87.1 Hypo-osmolality and hyponatremia; J12.9 Viral pneumonia, unspecified; E11.65 Type 2 diabetes mellitus with hyperglycemia; E78.00 Pure hypercholesterolemia, unspecified; R74.01 Elevation of levels of liver transaminase levels; I10 Essential (primary) hypertension; Z88.0 Allergy status to penicillin; Z79.899 Other long term (current) drug therapy; Z68.20 Body mass index [BMI] 20.0-20.9, adult
CPT/HCPCS: 36415; 36600; 71045; 80048; 80053; 81003; 82375; 82805; 82962; 83036; 83605; 83880; 84145; 84484; 85025; 87426; 87804; 93005; 94640; 97116; 97162; 97166; 97530; 97535; 99285; J1100; J1815; J1940; J2543; J3370; J3490; J7060

== ENCOUNTER 2022-10-19 12:34 | Emergency (ER) | payer MEDICAID, OTHER ==
[~2022-10-19] VITALS: Ht 162.6 cm; Wt 59.0 kg
[2022-10-19] MEDS ORDERED: ALBUTEROL (0.083%) 2.5MG/3ML NEB HHN STA (13:37)
[2022-10-19] MEDS ORDERED: IPRATROPIUM BROMIDE (0.02%) 0.5MG/2.5ML NEB HHN STA (13:37)
[2022-10-19 13:49] LABS: HEMATOCRIT. 36.4 % (42.0-52.0); HEMOGLOBIN. 12.2 g/dL (14.0-18.0); MEAN CORPUSCULAR HEMOGLOBIN 29.8 pg (28.0-32.0); MEAN CORPUSCULAR VOLUME 88.9 fL (80.0-94.0); PLATELET 326 x1000/uL (130-400); RED CELL DISTRIBUTION WIDTH 14.9 % (11.6-14.6)
[2022-10-19 14:01] LABS: CHLORIDE 101 mEq/L (98-107)
[2022-10-19 14:11] LABS: PLATELET ESTIMATE NORMAL
[2022-10-19] MEDS ORDERED: LEVOFLOXACIN 750MG PREMIX 150 ML IV ONE (16:00)
[2022-10-19] MEDS ORDERED: FUROSEMIDE 20MG/2ML VIAL IVP ONE (16:00)
[2022-10-19 23:08] VITALS: BP 155/66
== END 2022-10-20 01:24 | disposition short-term general hospital (02) ==
LOC: ER 12:34
DX: U07.1 COVID-19 (principal); J18.9 Pneumonia, unspecified organism; I11.0 Hypertensive heart disease with heart failure; I50.9 Heart failure, unspecified; R00.0 Tachycardia, unspecified; E11.9 Type 2 diabetes mellitus without complications; I44.4 Left anterior fascicular block; Z88.0 Allergy status to penicillin; Z86.16 Personal history of COVID-19; Z86.73 Personal history of transient ischemic attack (TIA), and cerebral infarction without residual deficits; Z90.49 Acquired absence of other specified parts of digestive tract; Z79.899 Other long term (current) drug therapy
CPT/HCPCS: 36415; 71045; 80053; 83605; 83880; 84484; 85025; 85379; 87426; 87804; 93005; 94640; 96365; 96366; 96375; 99291; C9803; J1940; J1956; Z7610

== ENCOUNTER 2024-06-13 23:15 | Inpatient (IN) | payer OTHER ==
[~2024-06-13] VITALS: Ht 152.4 cm; Wt 68.9 kg
[~2024-06-13 23:15] MED LIST changes: +APIX2.5T PO; +ASPI-1160 PO; +ATOR40TA70 MT; +FLUT1DIS3 INH; +ISOS30TA91 PO; -METO-539 PO; -NIFE-32 MT; +TAMS-11 PO
[2024-06-13 23:35] VITALS: RESP 32
[2024-06-13 23:56] LABS: BG FRACTION INSPIRED OXYGEN 100; BG HCO3 ACT 3.9 mmol/L (21.0-28.0); BG PCO2 18.7 mmHg (35.0-48.0); BG PH 6.938 (7.350-7.450); BG PO2 398.4 mmHg (83.0-108.0); BG SAMPLE SITE RIGHT RADIAL; BG TOTAL HEMOGLOBIN < 4.5 g/dL (13.5-17.5); BG VENT MODE MASK - BIPAP
[2024-06-13 23:58] LABS: CHLORIDE 108 mEq/L (98-107); POTASSIUM 5.3 mEq/L (3.5-5.1); SODIUM 138 mEq/L (136-145)
[2024-06-14] VITALS (85 sets, daily range): BP systolic 93–181; BP diastolic 25–67; PULSE 60–92; RESP 13–36; TEMP 30.2802–36.72516; O2SAT 88–100
[2024-06-14] LABS: CALCIUM 8.3 mg/dL (8.7-10.4)
[2024-06-14 00:05] LABS: UREA NITROGEN BLOOD 60 mg/dL (9-23)
[2024-06-14 00:06] LABS: TROPONIN I HIGH SENSITIVITY 20 ng/L (3.0-53)
[2024-06-14] MEDS: METHYLPREDNISOLONE SOD SUCC 125MG/2ML (ACT-O-VIAL) IV STA (00:20)
[2024-06-14 00:26] LABS: GLUCOSE 348 mg/dL (70-105)
[2024-06-14 00:27] LABS: CREATININE 2.1 mg/dL (0.6-1.3)
[2024-06-14 00:29] LABS: CARBON DIOXIDE < 10 mEq/L (21-32)
[2024-06-14] MEDS ORDERED: INSULIN REGULAR (HUMULIN R) 1000UNITS/10ML VIAL IV NR (00:30)
[2024-06-14] MEDS: IPRATROPIUM BROMIDE (0.02%) 0.5MG/2.5ML NEB HHN STA (00:40)
[2024-06-14] MEDS: ALBUTEROL (0.083%) 2.5MG/3ML NEB HHN SCH (00:40)
[2024-06-14] MEDS ORDERED: MAGNESIUM 2 G PREMIX 50 ML IV PRN (00:45)
[2024-06-14] MEDS ORDERED: SODIUM PHOSPHATE 15 MMOL in SODIUM CHLORIDE 0.9% 245 ML IV PRN (00:45)
[2024-06-14] MEDS ORDERED: POTASSIUM CHLORIDE 40 MEQ in SODIUM CHLORIDE 0.9% 230 ML IV PRN (00:45)
[2024-06-14] MEDS ORDERED: BLOOD SUGAR DIAGNOSTIC STRIP TEST PRN (00:45)
[2024-06-14] MEDS ORDERED: SODIUM CHLORIDE 0.9% 1,000 ML IV PRN (00:45)
[2024-06-14] MEDS ORDERED: SODIUM CHLORIDE 0.9% 1,000 ML IV NR (00:45)
[2024-06-14] MEDS ORDERED: KCL 20MEQ/100ML PREMIX 100 ML IV PRN (00:45)
[2024-06-14 00:59] LABS: MEAN CORPUSCULAR HEMOGLOBIN 26.9 pg (28.0-32.0); MEAN CORPUSCULAR HGB CONC 24.8 g/dL (31.0-37.0); MEAN CORPUSCULAR VOLUME 108.4 fL (80.0-94.0); MEAN PLATELET VOLUME 7.4 fl (7.4-10.4); PLATELET 295 x1000/uL (130-400); RED BLOOD CELL COUNT 1.26 mill/uL (4.7-6.1); RED CELL DISTRIBUTION WIDTH 20.3 % (11.6-14.6)
[2024-06-14 01:05] LABS: WHITE BLOOD COUNT 289.6 x1000/uL (4.5-11.0)
[2024-06-14 01:06] LABS: HEMOGLOBIN. 3.4 g/dL (14.0-18.0)
[2024-06-14 01:07] LABS: DIFFERENTIAL COMMENT 1; HEMATOCRIT. 13.6 % (42.0-52.0)
[2024-06-14 01:16] LABS: BG BASE EXCESS -25.5 mmol/L (-2.0-3.0); BG CARBOXYHEMOGLOBIN 0.3 % (0.5-1.5); BG DEOXYHEMOGLOBIN 11.7 % (0.0-5.0); BG FRACTION INSPIRED OXYGEN 21; BG HCO3 ACT 3.3 mmol/L (21.0-28.0); BG METHEMOGLOBIN 0.9 % (0.5-1.5); BG OXYGEN SATURATION 88.2 % (94.0-98.0); BG OXYHEMOGLOBIN 87.1 % (94.0-98.0); BG PCO2 13.9 mmHg (35.0-48.0); BG PH 6.997 (7.350-7.450); BG PO2 84.1 mmHg (83.0-108.0); BG SAMPLE SITE LEFT RADIAL; BG TOTAL HEMOGLOBIN 4.6 g/dL (13.5-17.5); BG VENT MODE ROOM AIR
[2024-06-14] MEDS: SODIUM CHLORIDE 0.9% 1000ML BAG (SEPSIS BOLUS) IV NR (01:24)
[2024-06-14] MEDS: BLOOD SUGAR DIAGNOSTIC STRIP TEST SCH ×2 (01:24→07:54)
[2024-06-14] MEDS: SODIUM BICARBONATE 8.4% 50MEQ/50ML SYR IV NR (01:28)
[2024-06-14] MEDS: VANCOMYCIN 1G PREMIX 200 ML IV NR (01:29)
[2024-06-14] MEDS: DEXTROSE 50% WATER 50ML SYRINGE IV NR ×2 (01:29→20:24)
[2024-06-14] MEDS: CALCIUM CHLORIDE 1,000 MG in DEXT 5% WATER 100 ML IV NR (01:48)
[2024-06-14] MEDS: INSULIN REGULAR (HUMULIN R) 1000UNITS/10ML VIAL IV NR ×2 (01:54→20:26)
[2024-06-14 02:12] LABS: CHLORIDE 108 mEq/L (98-107); POTASSIUM 5.5 mEq/L (3.5-5.1); SODIUM 140 mEq/L (136-145)
[2024-06-14 02:13] LABS: CALCIUM 8.5 mg/dL (8.7-10.4)
[2024-06-14] MEDS ORDERED: INSULIN REGULAR (DRIP) 100 UNITS in SODIUM CHLORIDE 0.9% 99 ML IV SCH (02:15)
[2024-06-14 02:18] LABS: CREATININE 2.3 mg/dL (0.6-1.3); GLUCOSE 307 mg/dL (70-105); UREA NITROGEN BLOOD 62 mg/dL (9-23)
[2024-06-14 02:20] LABS: BETA HYDROXYBUTYRATE 0.2 mMol/L (0.0-0.3)
[2024-06-14 02:37] LABS: CARBON DIOXIDE < 10 mEq/L (21-32); LACTIC ACID 21.4 mmol/L (0.4-2.0)
[2024-06-14] MEDS: DEXT 5%/0.9% NACL 1,000 ML IV PRN (03:21)
[2024-06-14] MEDS: NOREPINEPHRINE 8MG/250ML PMX 250 ML IV PRN (03:38)
[2024-06-14] MEDS: INSULIN REGULAR 100U/100ML PMX 100 ML IV SCH (03:38)
[2024-06-14] MEDS: MEROPENEM 500MG/50ML 50 ML IV SCH ×2 (03:53→17:08)
[2024-06-14] MEDS ORDERED: IPRATROPIUM/ALBUTEROL 0.5-3(2.5)MG/3ML NEB HHN PRN (04:00)
[2024-06-14] MEDS ORDERED: ACETAMINOPHEN 325MG TABLET PO PRN ×2 (04:00)
[2024-06-14] MEDS ORDERED: DIPHENHYDRAMINE 50MG/ML VIAL IV PRN (04:00)
[2024-06-14] MEDS ORDERED: ONDANSETRON HCL 4MG/2ML INJ IV PRN (04:00)
[2024-06-14] MEDS: SODIUM BICARBONATE 150 MEQ in SODIUM CHLORIDE 0.45% 850 ML IV SCH ×2 (04:33→13:20)
[2024-06-14] MEDS ORDERED: PROPOFOL 10MG/ML 100ML 100 ML IV PRN (04:45)
[2024-06-14] MEDS ORDERED: FENTANYL 2500MCG/250ML PMX 250 ML IV PRN (04:45)
[2024-06-14 04:48] LABS: MEAN CORPUSCULAR HEMOGLOBIN 29.2 pg (28.0-32.0); MEAN CORPUSCULAR HGB CONC 25.6 g/dL (31.0-37.0); MEAN CORPUSCULAR VOLUME 114.1 fL (80.0-94.0); PLATELET 217 x1000/uL (130-400); RED BLOOD CELL COUNT 1.26 mill/uL (4.7-6.1); RED CELL DISTRIBUTION WIDTH 17.8 % (11.6-14.6)
[2024-06-14] MEDS ORDERED: CALCIUM GLUCONATE 100MG/ML 10ML VIAL IV NR (05:00)
[2024-06-14 05:10] LABS: CHLORIDE 111 mEq/L (98-107); POTASSIUM 5.6 mEq/L (3.5-5.1); SODIUM 141 mEq/L (136-145)
[2024-06-14 05:11] LABS: CALCIUM 7.9 mg/dL (8.7-10.4)
[2024-06-14 05:16] LABS: CREATININE 2.1 mg/dL (0.6-1.3); GLUCOSE 259 mg/dL (70-105); UREA NITROGEN BLOOD 58 mg/dL (9-23)
[2024-06-14 05:16] LABS: WHITE BLOOD COUNT 221.4 x1000/uL (4.5-11.0)
[2024-06-14 05:17] LABS: DIFFERENTIAL COMMENT 1; HEMATOCRIT. 14.4 % (42.0-52.0); HEMOGLOBIN. 3.7 g/dL (14.0-18.0)
[2024-06-14 05:23] LABS: CARBON DIOXIDE < 10 mEq/L (21-32)
[2024-06-14 05:41] LABS: BG CARBOXYHEMOGLOBIN 0.7 % (0.5-1.5); BG DEOXYHEMOGLOBIN 0.3 % (0.0-5.0); BG FRACTION INSPIRED OXYGEN 100; BG METHEMOGLOBIN 0.6 % (0.5-1.5); BG OXYGEN SATURATION 99.7 % (94.0-98.0); BG OXYHEMOGLOBIN 98.4 % (94.0-98.0); BG PCO2 46.4 mmHg (35.0-48.0); BG PH < 6.686 (7.350-7.450); BG SAMPLE SITE RIGHT FEMORAL; BG TOTAL HEMOGLOBIN 4.7 g/dL (13.5-17.5); BG TOTAL RESPIRATORY RATE 14 b/min; BG VENT MODE VENT - AC
[2024-06-14 06:00] LABS: PLATELET ESTIMATE NORMAL
[2024-06-14] MEDS ORDERED: DEXTROSE 50% WATER 50ML SYRINGE IV PRN (06:00)
[2024-06-14 06:30] LABS: INR 1.5; PROTHROMBIN TIME 16.2 sec (9.6-11.0)
[2024-06-14 07:03] LABS: PARTIAL THROMBOPLASTIN TIME 97.6 sec (23.4-31.0)
[2024-06-14] MEDS: FAMOTIDINE 20MG/2ML VIAL IV SCH (08:17)
[2024-06-14] MEDS: INSULIN LISPRO 100 UNITS/ML SUBCUT SCH (08:18)
[2024-06-14 09:59] LABS: TROPONIN I HIGH SENSITIVITY 30 ng/L (3.0-53)
[2024-06-14 10:02] LABS: T4 FREE 0.79 ng/dL (0.89-1.76)
[2024-06-14 10:03] LABS: THYROID STIMULATING HORMONE 0.91 uIU/mL (0.55-4.78)
[2024-06-14 10:04] LABS: CHOLESTEROL 70 mg/dL (<200)
[2024-06-14 10:05] LABS: HDL CHOLESTEROL < 20 mg/dL (>55); TRIGLYCERIDE 175 mg/dL (0-150)
[2024-06-14 10:06] LABS: LDL CHOLESTEROL 39 mg/dL (5-100)
[2024-06-14] MEDS: VANCOMYCIN 750MG PREMIX 150 ML IV SCH (10:58)
[2024-06-14 11:05] LABS: PHOSPHORUS 8.2 mg/dL (2.5-4.9)
[2024-06-14 12:48] LABS: CARBON DIOXIDE 11 mEq/L (21-32); CHLORIDE 108 mEq/L (98-107); POTASSIUM 5.7 mEq/L (3.5-5.1); SODIUM 141 mEq/L (136-145)
[2024-06-14 12:49] LABS: CALCIUM 7.1 mg/dL (8.7-10.4); PROTHROMBIN TIME 21.5 sec (9.6-11.0)
[2024-06-14 12:49] LABS: PLATELET ESTIMATE NORMAL
[2024-06-14 12:50] LABS: SMUDGE CELLS 3+
[2024-06-14 12:51] LABS: ANISOCYTOSIS 2+
[2024-06-14 12:52] LABS: HEMATOCRIT. 25.2 % (42.0-52.0); HEMOGLOBIN. 8.1 g/dL (14.0-18.0); MEAN CORPUSCULAR HEMOGLOBIN 30.9 pg (28.0-32.0); MEAN CORPUSCULAR HGB CONC 32.2 g/dL (31.0-37.0); MEAN CORPUSCULAR VOLUME 95.8 fL (80.0-94.0); RED BLOOD CELL COUNT 2.63 mill/uL (4.7-6.1); RED CELL DISTRIBUTION WIDTH 17.8 % (11.6-14.6)
[2024-06-14 12:53] LABS: CREATININE 2.3 mg/dL (0.6-1.3); GLUCOSE 197 mg/dL (70-105)
[2024-06-14 12:55] LABS: ALANINE AMINOTRANSFERASE 430 IU/L (10-49); ALBUMIN 2.3 g/dL (3.2-4.8); ASPARTATE AMINOTRANSFERASE > 1000 IU/L (<34)
[2024-06-14 12:56] LABS: BILIRUBIN TOTAL 0.4 mg/dL (0.1-1.0); PROTEIN TOTAL 4.8 g/dL (6.0-8.3)
[2024-06-14 13:08] LABS: UREA NITROGEN BLOOD 72 mg/dL (9-23)
[2024-06-14 13:09] LABS: PHOSPHORUS 10.8 mg/dL (2.5-4.9)
[2024-06-14 13:11] LABS: TROPONIN I HIGH SENSITIVITY 8608 ng/L (3.0-53)
[2024-06-14 13:16] LABS: DIFFERENTIAL COMMENT 1
[2024-06-14 13:16] LABS: BG BASE EXCESS -21.8 mmol/L (-2.0-3.0); BG CARBOXYHEMOGLOBIN 0.5 % (0.5-1.5); BG DEOXYHEMOGLOBIN 0.5 % (0.0-5.0); BG FRACTION INSPIRED OXYGEN 80; BG HCO3 ACT 7.9 mmol/L (21.0-28.0); BG OXYGEN SATURATION 99.5 % (94.0-98.0); BG PCO2 32.7 mmHg (35.0-48.0); BG PH 7.001 (7.350-7.450); BG PO2 286.2 mmHg (83.0-108.0); BG SAMPLE SITE RIGHT BRACHIAL; BG TOTAL HEMOGLOBIN 8.3 g/dL (13.5-17.5); BG TOTAL RESPIRATORY RATE 28 b/min; BG VENT MODE VENT - AC
[2024-06-14 13:49] LABS: NUCLEATED RED BLOOD CELLS 5 /100 WBC
[2024-06-14 13:50] LABS: ANISOCYTOSIS 3+; SMUDGE CELLS 3+
[2024-06-14 13:51] LABS: PLATELET ESTIMATE DECREASED
[2024-06-14 13:52] LABS: PLATELET 104 x1000/uL (130-400)
[2024-06-14 14:00] LABS: LACTIC ACID 14.1 mmol/L (0.4-2.0)
[2024-06-14 18:33] LABS: CHLORIDE 110 mEq/L (98-107); SODIUM 144 mEq/L (136-145)
[2024-06-14 18:34] LABS: CALCIUM 7.3 mg/dL (8.7-10.4); CARBON DIOXIDE 12 mEq/L (21-32); HEMATOCRIT. 29.5 % (42.0-52.0); MEAN CORPUSCULAR HEMOGLOBIN 29.1 pg (28.0-32.0); MEAN CORPUSCULAR HGB CONC 30.4 g/dL (31.0-37.0); MEAN CORPUSCULAR VOLUME 95.8 fL (80.0-94.0); MEAN PLATELET VOLUME 7.4 fl (7.4-10.4); PLATELET 166 x1000/uL (130-400); RED BLOOD CELL COUNT 3.08 mill/uL (4.7-6.1); RED CELL DISTRIBUTION WIDTH 17.8 % (11.6-14.6); WHITE BLOOD COUNT 22.4 x1000/uL (4.5-11.0)
[2024-06-14 18:35] LABS: DIFFERENTIAL COMMENT 1
[2024-06-14 18:39] LABS: CREATININE 2.3 mg/dL (0.6-1.3); GLUCOSE 164 mg/dL (70-105); UREA NITROGEN BLOOD 71 mg/dL (9-23)
[2024-06-14 18:41] LABS: ALANINE AMINOTRANSFERASE 618 IU/L (10-49); ALBUMIN 2.3 g/dL (3.2-4.8)
[2024-06-14 18:42] LABS: BILIRUBIN TOTAL 0.3 mg/dL (0.1-1.0); PROTEIN TOTAL 4.9 g/dL (6.0-8.3)
[2024-06-14 18:48] LABS: PHOSPHORUS 11.6 mg/dL (2.5-4.9); POTASSIUM 6.2 mEq/L (3.5-5.1)
[2024-06-14 19:14] LABS: ASPARTATE AMINOTRANSFERASE 1821 IU/L (<34)
[2024-06-14] MEDS: CALCIUM GLUCONATE 1GM PREMIX 50 ML IV NR (20:24)
[2024-06-14 21:19] LABS: NUCLEATED RED BLOOD CELLS 9 /100 WBC
[2024-06-14 21:20] LABS: PLATELET ESTIMATE NORMAL
[2024-06-14 21:22] LABS: ANISOCYTOSIS 2+
[2024-06-14 21:25] LABS: HEMATOCRIT. 25.8 % (42.0-52.0); HEMOGLOBIN. 7.8 g/dL (14.0-18.0); MEAN CORPUSCULAR HEMOGLOBIN 28.6 pg (28.0-32.0); MEAN CORPUSCULAR HGB CONC 30.3 g/dL (31.0-37.0); MEAN CORPUSCULAR VOLUME 94.4 fL (80.0-94.0); MEAN PLATELET VOLUME 7.5 fl (7.4-10.4); PLATELET 121 x1000/uL (130-400); RED BLOOD CELL COUNT 2.74 mill/uL (4.7-6.1); RED CELL DISTRIBUTION WIDTH 18.1 % (11.6-14.6)
[2024-06-14 21:26] LABS: DIFFERENTIAL COMMENT 1
[2024-06-14 21:33] LABS: WHITE BLOOD COUNT 52.9 x1000/uL (4.5-11.0)
[2024-06-14 22:27] LABS: NUCLEATED RED BLOOD CELLS 10 /100 WBC
[2024-06-14 22:28] LABS: ANISOCYTOSIS 2+; PLATELET ESTIMATE DECREASED
[2024-06-15] VITALS (106 sets, daily range): BP systolic 63–159; BP diastolic 31–62; PULSE 77–102; RESP 28–39; TEMP 36.00288–37.55856; O2SAT 97–100
[2024-06-15 00:10] LABS: CALCIUM 6.8 mg/dL (8.7-10.4); CARBON DIOXIDE 15 mEq/L (21-32); CHLORIDE 109 mEq/L (98-107); SODIUM 143 mEq/L (136-145)
[2024-06-15 00:15] LABS: CREATININE 2.6 mg/dL (0.6-1.3); GLUCOSE 218 mg/dL (70-105); POTASSIUM 7.1 mEq/L (3.5-5.1); UREA NITROGEN BLOOD 86 mg/dL (9-23)
[2024-06-15 00:17] LABS: ALANINE AMINOTRANSFERASE 682 IU/L (10-49); ALBUMIN 2.1 g/dL (3.2-4.8); ASPARTATE AMINOTRANSFERASE > 1000 IU/L (<34); BILIRUBIN TOTAL 0.3 mg/dL (0.1-1.0); PROTEIN TOTAL 4.5 g/dL (6.0-8.3)
[2024-06-15] MEDS: DEXTROSE 50% WATER 50ML SYRINGE IV NR ×4 (01:04→17:33)
[2024-06-15] MEDS: SODIUM BICARBONATE 8.4% 50MEQ/50ML SYR IV NR ×4 (01:04→17:33)
[2024-06-15] MEDS: SODIUM POLYSTYRENE SULFONATE 15 G/60 ML BOT PO NR (01:04)
[2024-06-15] MEDS: CALCIUM GLUCONATE 2,000 MG in DEXT 5% WATER 80 ML IV NR (01:05)
[2024-06-15] MEDS: FUROSEMIDE 40MG/4ML VIAL IVP NR (01:05)
[2024-06-15] MEDS: CALCIUM ACETATE 667MG CAPSULE PO NR (01:05)
[2024-06-15] MEDS: MAGNESIUM 2 G PREMIX 50 ML IV NR ×2 (01:05→06:38)
[2024-06-15] MEDS: INSULIN REGULAR (HUMULIN R) 1000UNITS/10ML VIAL IV NR ×3 (01:06→17:32)
[2024-06-15 02:22] LABS: PHOSPHORUS 12.6 mg/dL (2.5-4.9)
[2024-06-15] MEDS: PROPOFOL 10MG/ML 100ML 100 ML IV PRN (05:39)
[2024-06-15 05:42] LABS: CHLORIDE 107 mEq/L (98-107); SODIUM 146 mEq/L (136-145)
[2024-06-15 05:43] LABS: CALCIUM 6.7 mg/dL (8.7-10.4); CARBON DIOXIDE 17 mEq/L (21-32)
[2024-06-15 05:47] LABS: HEMOGLOBIN. 7.1 g/dL (14.0-18.0); MEAN CORPUSCULAR HEMOGLOBIN 29.1 pg (28.0-32.0); MEAN CORPUSCULAR HGB CONC 32.4 g/dL (31.0-37.0); MEAN CORPUSCULAR VOLUME 89.7 fL (80.0-94.0); MEAN PLATELET VOLUME 7.4 fl (7.4-10.4); PLATELET 70 x1000/uL (130-400); RED BLOOD CELL COUNT 2.46 mill/uL (4.7-6.1); RED CELL DISTRIBUTION WIDTH 18.1 % (11.6-14.6); WHITE BLOOD COUNT 22.1 x1000/uL (4.5-11.0)
[2024-06-15 05:48] LABS: CREATININE 2.9 mg/dL (0.6-1.3); GLUCOSE 203 mg/dL (70-105)
[2024-06-15 05:49] LABS: POTASSIUM 6.9 mEq/L (3.5-5.1); UREA NITROGEN BLOOD 97 mg/dL (9-23)
[2024-06-15 05:50] LABS: ALANINE AMINOTRANSFERASE 674 IU/L (10-49); ASPARTATE AMINOTRANSFERASE > 1000 IU/L (<34)
[2024-06-15 05:51] LABS: BILIRUBIN TOTAL 0.6 mg/dL (0.1-1.0); PROTEIN TOTAL 4.2 g/dL (6.0-8.3)
[2024-06-15 05:53] LABS: LACTIC ACID 12.5 mmol/L (0.4-2.0)
[2024-06-15] MEDS ORDERED: SODIUM CHLORIDE 0.9% 2,000 ML IV NR (06:00)
[2024-06-15 06:04] LABS: DIFFERENTIAL COMMENT 1
[2024-06-15 06:31] LABS: BG BASE EXCESS -12.9 mmol/L (-2.0-3.0); BG CARBOXYHEMOGLOBIN 1.4 % (0.5-1.5); BG FRACTION INSPIRED OXYGEN 60; BG HCO3 ACT 12.7 mmol/L (21.0-28.0); BG METHEMOGLOBIN 0.3 % (0.5-1.5); BG OXYGEN SATURATION 96.9 % (94.0-98.0); BG OXYHEMOGLOBIN 95.3 % (94.0-98.0); BG PCO2 27.8 mmHg (35.0-48.0); BG PH 7.276 (7.350-7.450); BG PO2 116.5 mmHg (83.0-108.0); BG TOTAL HEMOGLOBIN 7.1 g/dL (13.5-17.5); BG VENT MODE VENT - AC
[2024-06-15] MEDS: SODIUM POLYSTYRENE SULFONATE 15 G/60 ML BOT NG NR (06:38)
[2024-06-15] MEDS: CALCIUM GLUCONATE 100MG/ML 10ML VIAL IV NR (06:38)
[2024-06-15] MEDS: SODIUM CHLORIDE 10% FOR INH 15ML NEB INH NR (06:38)
[2024-06-15 06:58] LABS: LACTATE DEHYDROGENASE > 4500 IU/L (120-246)
[2024-06-15] MEDS ORDERED: INSULIN REGULAR (HUMULIN R) 1000UNITS/10ML VIAL IV NR (09:00)
[2024-06-15] MEDS ORDERED: SODIUM POLYSTYRENE SULFONATE 15 G/60 ML BOT PO ONE (09:00)
[2024-06-15] MEDS ORDERED: POTASSIUM CHLORIDE 20MEQ/PACKET PO NR (09:00)
[2024-06-15 10:29] LABS: NUCLEATED RED BLOOD CELLS 6 /100 WBC
[2024-06-15 10:30] LABS: PLATELET ESTIMATE DECREASED
[2024-06-15 11:14] LABS: CHLORIDE 105 mEq/L (98-107); SODIUM 147 mEq/L (136-145)
[2024-06-15 11:15] LABS: CALCIUM 6.1 mg/dL (8.7-10.4); CARBON DIOXIDE 21 mEq/L (21-32)
[2024-06-15 11:20] LABS: CREATININE 3.1 mg/dL (0.6-1.3); GLUCOSE 274 mg/dL (70-105)
[2024-06-15 11:22] LABS: ALANINE AMINOTRANSFERASE 572 IU/L (10-49); ALBUMIN 1.6 g/dL (3.2-4.8)
[2024-06-15 11:23] LABS: BILIRUBIN TOTAL 0.6 mg/dL (0.1-1.0); PROTEIN TOTAL 3.4 g/dL (6.0-8.3)
[2024-06-15 11:33] LABS: ASPARTATE AMINOTRANSFERASE 1466 IU/L (<34)
[2024-06-15 11:49] LABS: POTASSIUM 6.5 mEq/L (3.5-5.1)
[2024-06-15 11:50] LABS: UREA NITROGEN BLOOD 101 mg/dL (9-23)
[2024-06-15 12:47] LABS: PHOSPHORUS 12.1 mg/dL (2.5-4.9)
[2024-06-15 12:56] LABS: BG BASE EXCESS -10.2 mmol/L (-2.0-3.0); BG CARBOXYHEMOGLOBIN 1.9 % (0.5-1.5); BG DEOXYHEMOGLOBIN 1.5 % (0.0-5.0); BG FRACTION INSPIRED OXYGEN 60; BG HCO3 ACT 15.5 mmol/L (21.0-28.0); BG METHEMOGLOBIN 0.3 % (0.5-1.5); BG OXYGEN SATURATION 98.5 % (94.0-98.0); BG OXYHEMOGLOBIN 96.3 % (94.0-98.0); BG PCO2 32.9 mmHg (35.0-48.0); BG PO2 142.4 mmHg (83.0-108.0); BG SAMPLE SITE RIGHT BRACHIAL; BG TOTAL HEMOGLOBIN 6.9 g/dL (13.5-17.5); BG VENT MODE VENT - AC
[2024-06-15 16:24] LABS: CHLORIDE 105 mEq/L (98-107); SODIUM 147 mEq/L (136-145)
[2024-06-15 16:25] LABS: CARBON DIOXIDE 15 mEq/L (21-32)
[2024-06-15 16:28] LABS: MEAN CORPUSCULAR HEMOGLOBIN 30.3 pg (28.0-32.0); MEAN CORPUSCULAR HGB CONC 32.2 g/dL (31.0-37.0); PLATELET 53 x1000/uL (130-400); RED BLOOD CELL COUNT 2.74 mill/uL (4.7-6.1); RED CELL DISTRIBUTION WIDTH 18.6 % (11.6-14.6)
[2024-06-15 16:30] LABS: CREATININE 3.2 mg/dL (0.6-1.3); GLUCOSE 143 mg/dL (70-105); UREA NITROGEN BLOOD 91 mg/dL (9-23)
[2024-06-15 16:32] LABS: ALANINE AMINOTRANSFERASE 655 IU/L (10-49); ALBUMIN 1.9 g/dL (3.2-4.8); DIFFERENTIAL COMMENT 1
[2024-06-15 16:33] LABS: BILIRUBIN TOTAL 0.9 mg/dL (0.1-1.0)
[2024-06-15 16:36] LABS: HEMATOCRIT. 25.7 % (42.0-52.0); HEMOGLOBIN. 8.3 g/dL (14.0-18.0)
[2024-06-15 16:39] LABS: WHITE BLOOD COUNT 47.3 x1000/uL (4.5-11.0)
[2024-06-15 16:55] LABS: POTASSIUM 7.5 mEq/L (3.5-5.1)
[2024-06-15 16:56] LABS: LACTIC ACID 17.4 mmol/L (0.4-2.0)
[2024-06-15 17:02] LABS: ASPARTATE AMINOTRANSFERASE 1634 IU/L (<34)
[2024-06-15 18:44] LABS: BG BASE EXCESS -13.8 mmol/L (-2.0-3.0); BG CARBOXYHEMOGLOBIN 1.8 % (0.5-1.5); BG DEOXYHEMOGLOBIN 5.2 % (0.0-5.0); BG FRACTION INSPIRED OXYGEN 60; BG HCO3 ACT 13.3 mmol/L (21.0-28.0); BG METHEMOGLOBIN 0.3 % (0.5-1.5); BG OXYGEN SATURATION 94.7 % (94.0-98.0); BG OXYHEMOGLOBIN 92.7 % (94.0-98.0); BG PCO2 36.8 mmHg (35.0-48.0); BG PH 7.177 (7.350-7.450); BG PO2 97.2 mmHg (83.0-108.0); BG SAMPLE SITE RIGHT BRACHIAL; BG TOTAL HEMOGLOBIN 5.9 g/dL (13.5-17.5); BG VENT MODE VENT - AC
[2024-06-15 19:22] LABS: ANISOCYTOSIS 1+; NUCLEATED RED BLOOD CELLS 10 /100 WBC; PLATELET ESTIMATE MARKEDLY DECREASED
[2024-06-15 21:44] LABS: CHLORIDE 104 mEq/L (98-107); SODIUM 148 mEq/L (136-145)
[2024-06-15 21:45] LABS: CARBON DIOXIDE 13 mEq/L (21-32)
[2024-06-15 21:50] LABS: CREATININE 3.5 mg/dL (0.6-1.3); GLUCOSE 90 mg/dL (70-105); UREA NITROGEN BLOOD 92 mg/dL (9-23)
[2024-06-15 21:52] LABS: ALANINE AMINOTRANSFERASE 645 IU/L (10-49); ALBUMIN 1.8 g/dL (3.2-4.8)
[2024-06-15 21:53] LABS: PROTEIN TOTAL 3.8 g/dL (6.0-8.3)
[2024-06-15 22:04] LABS: ASPARTATE AMINOTRANSFERASE 1615 IU/L (<34)
[2024-06-15 22:09] LABS: POTASSIUM 7.9 mEq/L (3.5-5.1)
[2024-06-16] VITALS (35 sets, daily range): BP systolic 48–143; BP diastolic 30–83; PULSE 0–126; RESP 0–40; TEMP 35.66952–36.05844; O2SAT 96–100
[2024-06-16] MEDS: DEXTROSE 50% WATER 50ML SYRINGE IV NR (00:34)
[2024-06-16] MEDS: SODIUM BICARBONATE 8.4% 50MEQ/50ML SYR IV NR (01:16)
[2024-06-16] MEDS: CALCIUM GLUCONATE 100MG/ML 10ML VIAL IV NR (01:16)
[2024-06-16] MEDS: FUROSEMIDE 100MG/10ML VIAL IVP NR (01:16)
[2024-06-16] MEDS: DEXT 10% WATER 1,000 ML IV SCH (01:17)
[2024-06-16] MEDS: SODIUM POLYSTYRENE SULFONATE 15 G/60 ML BOT PO SCH (01:17)
[2024-06-16] MEDS: METOCLOPRAMIDE HCL 10MG/2ML VIAL IV SCH (01:17)
[2024-06-16] MEDS: INSULIN REGULAR (HUMULIN R) 1000UNITS/10ML VIAL IV NR (01:19)
[2024-06-16] MEDS: SODIUM BICARBONATE 150 MEQ in DEXTROSE 5% WATER 850 ML IV SCH (01:51)
[2024-06-16] MEDS: PROPOFOL 10MG/ML 100ML 100 ML IV PRN (02:26)
[2024-06-16] MEDS ORDERED: AMIODARONE 150MG/100ML 100 ML IV ONE (05:00)
[2024-06-16] MEDS ORDERED: AMIODARONE HCL 900 MG in DEXT 5% WATER 482 ML IV PRN (05:00)
[2024-06-16] MEDS: PHENYLEPHRINE 50MG/250ML PMX 250 ML IV PRN (05:40)
== END 2024-06-16 09:00 | DRG 720 ==
LOC: ER 23:15 → CVICU 06-14 00:42 → EDBEDREQDT 06-14 01:26 → EDBEDREQSVC 06-14 01:26 → EDBEDREQTM 06-14 01:26 → EDBEDREQ 06-14 01:26
PROVIDERS: ADMIT Preventive Medicine Clinical Informatics; ATTEND Preventive Medicine Clinical Informatics
PROC: 5A09357 Assistance with Respiratory Ventilation, Less than 24 Consecutive Hours, Continuous Positive Airway Pressure (ICD-10-PCS; 2024-06-13)
PROC: 5A1945Z Respiratory Ventilation, 24-96 Consecutive Hours (ICD-10-PCS; principal; 2024-06-14)
PROC: 0BH17EZ Insertion of Endotracheal Airway into Trachea, Via Natural or Artificial Opening (ICD-10-PCS; 2024-06-14)
PROC: 5A09357 Assistance with Respiratory Ventilation, Less than 24 Consecutive Hours, Continuous Positive Airway Pressure (ICD-10-PCS; 2024-06-14)
PROC: 30233N1 Transfusion of Nonautologous Red Blood Cells into Peripheral Vein, Percutaneous Approach (ICD-10-PCS; 2024-06-14)
PROC: 02HV33Z Insertion of Infusion Device into Superior Vena Cava, Percutaneous Approach (ICD-10-PCS; 2024-06-14)
PROC: B548ZZA Ultrasonography of Superior Vena Cava, Guidance (ICD-10-PCS; 2024-06-14)
DX: A41.9 Sepsis, unspecified organism (principal); J96.01 Acute respiratory failure with hypoxia; R65.21 Severe sepsis with septic shock; I46.9 Cardiac arrest, cause unspecified; E88.3 Tumor lysis syndrome; E11.10 Type 2 diabetes mellitus with ketoacidosis without coma; G93.41 Metabolic encephalopathy; K56.600 Partial intestinal obstruction, unspecified as to cause; E83.39 Other disorders of phosphorus metabolism; K56.7 Ileus, unspecified; E11.22 Type 2 diabetes mellitus with diabetic chronic kidney disease; D50.9 Iron deficiency anemia, unspecified; I21.4 Non-ST elevation (NSTEMI) myocardial infarction; N17.9 Acute kidney failure, unspecified; J44.9 Chronic obstructive pulmonary disease, unspecified; E83.51 Hypocalcemia; C91.10 Chronic lymphocytic leukemia of B-cell type not having achieved remission; E87.5 Hyperkalemia; N18.9 Chronic kidney disease, unspecified; I12.9 Hypertensive chronic kidney disease with stage 1 through stage 4 chronic kidney disease, or unspecified chronic kidney disease; E78.00 Pure hypercholesterolemia, unspecified; Z20.822 Contact with and (suspected) exposure to COVID-19; I25.10 Atherosclerotic heart disease of native coronary artery without angina pectoris; I48.91 Unspecified atrial fibrillation; N40.0 Benign prostatic hyperplasia without lower urinary tract symptoms; Z66 Do not resuscitate; Z79.01 Long term (current) use of anticoagulants; Z79.82 Long term (current) use of aspirin; Z79.899 Other long term (current) drug therapy; Z85.72 Personal history of non-Hodgkin lymphomas; Z86.73 Personal history of transient ischemic attack (TIA), and cerebral infarction without residual deficits; Z88.0 Allergy status to penicillin; Z88.1 Allergy status to other antibiotic agents; Z88.8 Allergy status to other drugs, medicaments and biological substances; Z86.16 Personal history of COVID-19
CPT/HCPCS: 36415; 36600; 71045; 71250; 74176; 80048; 80053; 80061; 80202; 82010; 82040; 82330; 82375; 82553; 82805; 82962; 83036; 83605; 83615; 83735; 83880; 83930; 84100; 84439; 84443; 84481; 84484; 84550; 85025; 85362; 85384; 86850; 86880; 86900; 86920; 87426; 93005; 94003; 94640; 99291; J0610; J1815; J1940; J2185; J2704; J2765; J2919; J3370; J3475; J3490; J7060; J7070; J7131; P9016